=== PATIENT | male | born 1995 | race Caucasian/White ===

== ENCOUNTER 2018-03-28 20:45 | Inpatient (IN) | payer OTHER ==
[~2018-03-28] VITALS: Ht 172.7 cm; Wt 65.8 kg
[~2018-03-28 20:45] MED LIST: ESCI20TA PO; GABA600T2 PO; HYDR-3895 PO; QUET50TA PO
[2018-03-29] MEDS ORDERED: MIRALAX 17 GM POWD.PACK PO PRN (03:00)
[2018-03-29] MEDS ORDERED: ONDANSETRON ODT 4 MG TAB.RAPDIS SL PRN (03:00)
[2018-03-29] MEDS ORDERED: LORAZEPAM 2 MG/1 ML VIAL IM PRN (03:00)
[2018-03-29] MEDS ORDERED: DICYCLOMINE HCL 20 MG TABLET PO PRN (03:00)
[2018-03-29] MEDS ORDERED: METHOCARBAMOL 750 MG TABLET PO PRN (03:00)
[2018-03-29] MEDS ORDERED: IBUPROFEN 400 MG TABLET PO PRN (03:00)
[2018-03-29] MEDS ORDERED: BUPRENORPHINE HCL 2 MG TAB.SUBL SL PRN (03:00)
[2018-03-29] MEDS ORDERED: LORAZEPAM 1 MG TABLET PO PRN ×2 (03:00)
[2018-03-29] MEDS ORDERED: CLONIDINE HCL 0.1 MG TABLET PO PRN (03:00)
[2018-03-29] MEDS ORDERED: ACETAMINOPHEN 325 MG TABLET PO PRN (03:00)
[2018-03-29] MEDS ORDERED: ONDANSETRON 4 MG/2 ML VIAL IM PRN (03:00)
[2018-03-29] MEDS ORDERED: LOPERAMIDE HCL 2 MG CAPSULE PO PRN ×2 (03:00)
[2018-03-29] MEDS ORDERED: HYDROXYZINE PAMOATE 25 MG CAPSULE PO PRN (03:00)
[2018-03-29] MEDS ORDERED: MAG HYDROX/AL HYDROX/SIMETH 30 ML LIQUID UDC PO PRN (03:00)
[2018-03-29] MEDS ORDERED: MAGNESIUM HYDROXIDE 30 ML LIQUID UDC PO PRN (03:00)
--- NOTE | 2018-03-29 03:12 | NUR ---
Pre-assessment Note: Pt seen in intake office. Pt is AOx4 without s/s of acute distress. BP: 119/68, HR: 86, T: 98.0, RR: 16, SpO2: 95%, Pain: 0/10. Pt appears withdrawn and tired. Pt stated he "had a very long flight." Pt reports that he is being admitted for Suboxone and Klonopin dependence. Policies and rules of the unit explained to pt. Pt verbalized understanding. Will continue assessment when pt arrives on floor.
[2018-03-29 03:30] VITALS: BP 119/68
[2018-03-29 03:30] LABS: *AMPHETAMINE, URINE POSITIVE (NEGATIVE); *BARBITURATE, URINE NEGATIVE (NEGATIVE); *CANNABINOID, URINE NEGATIVE (NEGATIVE); *COCCAINE, URINE NEGATIVE (NEGATIVE); *OPIATE, URINE POSITIVE (NEGATIVE); *PHENCYCLIDINE SCREEN,URINE NEGATIVE (NEGATIVE)
--- NOTE | 2018-03-29 03:45 | NUR ---
Admission Note: Pt is 22M, admitted to [facility] at 0312 for Opiate/Benzo withdrawal. Pt is experiencing no withdrawal symptoms at this time. Pt appears slightly intoxicated and withdrawn. Pt reports he had used Heroin IV before travelling to [facility]. Pt is AOx4 and is able to answer assessment questions. Pt states that his withdrawal symptoms include anxiety and chills. Pt reported that he doesn't really experience withdrawal symptoms because he takes his reported substances on a maintenance schedule. Educated pt about signs and symptoms of withdrawal. Pt verbalized understanding. Pt denies hx of withdrawal-induced seizures. Substance use history,: 1. Pt uses 2mg of Klonopin PO daily for the past 8 months. Pt last used Klonopin on 03/28/18. 2. Pt uses 8mg of Suboxone SL daily for the past month. Pt last used Suboxone on 03/27/18. Pt stated he was using 16mg of Suboxone SL for 8 months but has lowered his use in the past month. 3. Pt reported using 0.5g of Heroin IV one time before travelling to [facility]. Pt last used Heroin on 03/28/18. Pt states he is not currently dependent on Heroin. Pt reported that he lives locally but had been in [place] for the past month. Pt just recently arrived to [place] by plane and went straight to [facility]. Pt states that he is in treatment because he "wants to get back on track with his life". Pt reported that he "wants to get his life right". Pt reports that this will be his second time in [facility]. Pt has been previously admitted to [facility] on 09/20/16. Pt also reported going to multiple sober livings within the past year. Pt's main motivation to get clean is for himself. BP: 119/68, HR: 86, T: 98.0, RR: 16, SpO2: 95%, Pain: 0/10. COWS 5. CIWA 5. Respirations even and unlabored. Lung sounds clear bilaterally. Bowel sounds normoactive x4 quadrants. Skin intact. Pt is 145 lbs and is 5'8" tall. Pt follows a regular diet at home. Pt reported NKA. Pt wishes to be full code. Pt's primary physician is Dr. Marcelino (unable to remember name). Pt reports medical hx of anxiety, depression, and hepatitis C+. Pt did not bring any home medications. Pt reports that he is highly dependent on cigarettes and smokes 1 pack a day. Smoking cessation education provided to pt. Pt denies suicidal/homicidal ideation at this time. Bed in lowest position. Side rails up x2. Bed padded for safety. All needs attended and met. Call light functioning and within reach. Will continue to monitor.
--- NOTE | 2018-03-29 04:46 | NUR ---
Pre-assessment Note: Pt seen in intake office. Pt is AOx4 without s/s of acute distress. BP: 119/68, HR: 86, T: 98.0, RR: 16, SpO2: 95%, Pain: 0/10. Pt appears withdrawn and tired. Pt stated he "had a very long flight." Pt reports that he is being admitted for Suboxone and Klonopin dependence. Policies and rules of the unit explained to pt. Pt verbalized understanding. Will continue assessment when pt arrives on floor. Addendum: 03/29/18 at 0447 by LEANNE LAIRD RN ERROR WRONG TIME
--- NOTE | 2018-03-29 07:13 | NUR ---
End of Shift Notes: Pt currently in bed with eyes closed. Pt slept for 3 hours. No PRN medications given during shift. Pt's last COWS was 5 and last CIWA was 5 at 0400. Pt currently on PRN Ativan and PRN Subutex to manage withdrawal symptoms. Fall and Sz precautions observed. Bed in lowest position. Side rails up x2. Call light functioning and within reach. All needs attended and met. Will endorse to day shift nurse.
--- NOTE | 2018-03-29 07:30 | NUR ---
Start of Shift Bindery Machine Setter received report on 22 year old male admitted to [facility] early this morning for medical management of Benzodiazepine and Suboxone withdrawals. Pt endorses NKA, full code and regular diet. Pt reports PMH of Hep C and PPH of anxiety and depression. Pt has not been started on taper yet. Last COWS 5, CIWA 5, per NOC report. No PRN medication administered. Bindery Machine Setter encounters pt in room resting with eyes closed, rise and fall of chest noted with even and unlabored respirations. Bed in low position with wheels locked and side rails up x2. Will continue to monitor, support and encourage according to plan of care.
[2018-03-29 08:30] VITALS: BP 104/50
[2018-03-29] MEDS ORDERED: MULTIVITAMINS,THERAPEUTIC TABLET PO SCH (09:00)
[2018-03-29] MEDS ORDERED: BUPRENORPHINE HCL 2 MG TAB.SUBL SL SCH (10:00)
[2018-03-29 10:01] LABS: BASOPHILS % (AUTO) 0.8 % (0.0-2.0); EOSINOPHILS # (AUTO) 0.1 K/uL (0.0-0.7); EOSINOPHILS % (AUTO) 2.2 % (0.0-7.0); HEMATOCRIT 40.2 % (36.7-47.1); HEMOGLOBIN 14.1 g/dL (12.5-16.3); LYMPHOCYTES # (AUTO) 1.2 K/uL (20.0-40.0); LYMPHOCYTES % (AUTO) 28.5 % (20.5-51.5); MEAN CORPUSCULAR HEMOGLOBIN 30.8 uug (23.8-33.4); MEAN CORPUSCULAR HGB CONC 35 g/dL (32.5-36.3); MEAN CORPUSCULAR VOLUME 87.7 fL (73.0-96.2); MONOCYTES # (AUTO) 0.3 K/uL (2.0-10.0); MONOCYTES % (AUTO) 6.8 % (0.0-11.0); NEUTROPHILS # (AUTO) 2.6 K/uL (1.8-8.9); NEUTROPHILS % (AUTO) 61.7 % (38.5-71.5); RED BLOOD CELL COUNT(AUTO) 4.59 MIL/uL (4.06-5.63)
[2018-03-29 10:03] LABS: PLATELET COUNT (AUTO) 120 K/uL (152-348); WHITE BLOOD COUNT (AUTO) 4.3 K/uL (3.6-10.2)
[2018-03-29 10:05] LABS: ETHANOL < 3 MG/DL (0-0)
[2018-03-29 10:06] LABS: ALANINE AMINOTRANSFERASE 47 U/L (16-63); ALKALINE PHOSPHATASE 71 U/L (50-136); AMYLASE 29 U/L (25-115); ASPARTATE AMINOTRANSFERASE 27 U/L (15-37); BILIRUBIN,TOTAL 1.8 mg/dL (0.2-1.0); CARBON DIOXIDE 27 mmol/L (21-32); CHLORIDE 99 mmol/L (98-107); CREATININE 0.8 mg/dL (0.6-1.3); GLUCOSE 152 mg/dL (74-106); LIPASE 88 U/L (73-393); MAGNESIUM 1.8 mg/dL (1.8-2.4); POTASSIUM 3.4 mmol/L (3.5-5.1); TOTAL PROTEIN, SERUM 7.3 g/dL (6.4-8.2); UREA NITROGEN, BLOOD 8 mg/dL (7-18)
[2018-03-29] MEDS: LORAZEPAM 1 MG TABLET PO SCH ×3 (10:07→20:14)
[2018-03-29 10:34] LABS: THYROID STIMULATING HORMONE 0.794 mIU/mL (0.358-3.740)
[2018-03-29 12:25] VITALS: BP 106/57
[2018-03-29] MEDS: BUPRENORPHINE HCL 2 MG TAB.SUBL SL SCH ×2 (14:17→20:14)
[2018-03-29 16:56] VITALS: BP 112/60
--- NOTE | 2018-03-29 19:40 | NUR ---
Start of Shift Note Received a 22 y/o male px, admitted for medically supervised withdrawal from opiate and benzo. Px is placed on 4 day Subutex and 4 day Ativan taper. Last reported COWS 7 and CIWA 7 by AM shift nurse. During the rounds at 1940, px is awake inside his room. Px appears disheveled and unshaven. Px stated "My anxiety is 4/10." No complaints made. Bed on lowest position, side rails up 2x and call light within reach. We'll continue to monitor.
[2018-03-29 20:00] VITALS: BP 119/65
[2018-03-29] MEDS: GABAPENTIN 300 MG CAPSULE PO SCH (20:14)
[2018-03-30 04:00] VITALS: BP 116/66
[2018-03-30 07:10] LABS: HEPATITIS B SURFACE AG Negative (Negative)
--- NOTE | 2018-03-30 07:15 | NUR ---
End of Shift Note During the shift, px slept most of the time. Px slept for 9 hours. No complaints made. No PRN medications given. Px's oral intake is 1,200 ml, voided 3x, with No BM. At 0630, px is asleep on bed in left side lying position. Bed on lowest position, side rails up 2x and call light within reach. We'll continue to monitor. Px endorsed to AM shift nurse.
--- NOTE | 2018-03-30 08:00 | NUR ---
BEGINNING OF SHIFT Patient endorsement report received from third shift lieutenant nurse, all pertinent information discussed. Patient is a 22 year old male with admitting Dx: Opiate/bzo withdrawal. Patient currently under close observation, continues with ongoing 4 day Subutex And Ativan taper. Patients fall and seizure precautions in place and observed at all times. patient slept for 9 hours. Patient with last Cow score: 7, and last ciwa score f: 7. Patient received in bed with eyes closed respirations even and unlabored, responsive to verbal stimuli. will educated regarding plan of care for the day, and medication regimen. Patient received no PRN during third shift lieutenant. will continue to monitor closely. safety measures in place.
[2018-03-30] MEDS ORDERED: HYDROXYZINE PAMOATE 25 MG CAPSULE PO PRN (09:00)
[2018-03-30] MEDS ORDERED: TUBERCULIN,PURIF.PROT.DERIV. 5 TU/0.1 ML TEST ID ONE (09:00)
[2018-03-30 09:15] VITALS: BP 104/61
[2018-03-30] MEDS: GABAPENTIN 300 MG CAPSULE PO SCH ×2 (09:17→20:39)
[2018-03-30] MEDS: LORAZEPAM 1 MG TABLET PO SCH ×3 (09:18→20:39)
[2018-03-30] MEDS: BUPRENORPHINE HCL 2 MG TAB.SUBL SL SCH ×3 (09:18→20:39)
[2018-03-30 13:22] VITALS: BP 102/62
[2018-03-30 17:28] VITALS: BP 128/75
--- NOTE | 2018-03-30 19:00 | NUR ---
Start of Shift Patient Received. Patient is noted in his room, awake, alert and verbally responsive. Breathing even and non labored. Patient continues on a 4 day Ativan and 4 day Subutex tapers. Per endorsement, patient received PPD to left forearm and to reassessed 04/01/18. No PRN medications. Last noted CIWA 6 and COWS 5. All needs attended to promptly. Will continue plan of care as ordered.
--- NOTE | 2018-03-30 19:05 | NUR ---
END OF SHIFT Patient monitored closely during shift. Patient alert and oriented x4, patient currently with ongoing 4 day Subutex and Ativan taper as ordered and is currently on day 2 of taper. admitting Dx: opiate/bzo withdrawal. Patient Is disheveled, noted with flat affect, has anxious and worried facial expression. During shift Patient presented with: chills, clammy skin, enlarged pupils, nasal congestion, anxiety, tremors, and yawning. Initial cow score of: 7 and ciwa score of: 6, last cow score of: 7 and last ciwa score of: 6. Continues under very close observation. Received no PRN Medications during shift. Received PPD to left F/A, well tolerated. Patient encouraged participation in therapy sessions, patient denies any SI/HI, Patient was encouraged to verbalize feelings, encouraged to develop coping skills and utilization of non pharmacological interventions .Encouraged patient to increase PO fluid intake as tolerated. Patients safety measures are in place. call light kept within reach, will continue to monitor. Endorsed to assembler 1st shift nurse, all pertinent information discussed.
[2018-03-30 20:32] VITALS: BP 120/69
[2018-03-30] MEDS: diphenhydrAMINE 50 MG CAPSULE PO PRN (20:39)
--- NOTE | 2018-03-30 20:41 | NUR ---
PRN Medication Administration Patient is verbalizing inability of falling asleep. PRN Benadryl administered. Will continue to monitor.
--- NOTE | 2018-03-30 21:45 | NUR ---
PRN Medication Reassessment Patient is noted in bed sleeping. Breathing even and non labored. No signs of restlessness or discomfort noted. PRN Benadryl noted to be effective. Will continue to monitor.
[2018-03-31 00:18] VITALS: BP 109/55
--- NOTE | 2018-03-31 04:15 | NUR ---
Vitals Refused Patient is noted in bed sleeping. Breathing even and non labored. No restlessness or facial grimacing noted. Respirations noted to be 16. COWS and CIWA not able to be completed as per ordered. Will continue to monitor. Addendum: 03/31/18 at 0528 by ROBERT ADAMS LVN Amended: Links added.
--- NOTE | 2018-03-31 06:57 | NUR ---
End of Shift Patient is in bed sleeping. Breathing even and non labored. Patient continues on 5 day Subutex taper. Patient received PRN Ativan 2mg for increased anxiety, tremors, increased agitation, and light sensitivity, with medication noted to be effective. Last noted CIWA 7 and COWS 5. Patient noted to sleep a total of 8 hours. All needs attended to promptly. Will endorse to continue plan of care as ordered. Addendum: 03/31/18 at 0702 by ROBERT ADAMS LVN ENTERED IN ERROR
--- NOTE | 2018-03-31 07:01 | NUR ---
End of Shift Patient is noted in bed sleeping. Breathing even and non labored. Patient continues on a 4 day Ativan and 4 day Subutex tapers. Patient received PRN Benadryl for inability of falling asleep with medication noted to be effective. Patient noted to sleep a total of 9 hours. Last noted COWS 5 and CIWA 6. All needs attended to promptly. Will endorse to continue plan of care as ordered. Addendum: 03/31/18 at 0701 by ROBERT ADAMS LVN ENTERED IN ERROR
--- NOTE | 2018-03-31 07:21 | NUR ---
BEGINNING OF SHIFT Patient endorsement report received from taker off drying kiln nurse, all pertinent information discussed. Patient is a 22 year old male with admitting Dx: Opiate/bzo withdrawal. Patient currently under close observation, continues with ongoing 4 day Subutex And Ativan taper, patient scheduled to begin day 3 of taper. Patients fall and seizure precautions in place and observed at all times. patient Patient with last Cow score: 5, and last ciwa score f: 6. Patient received in bed with eyes closed respirations even and unlabored, responsive to verbal stimuli. will educated regarding plan of care for the day, and medication regimen. Patient received PRN: Benadryl, during taker off drying kiln. will continue to monitor closely. safety measures in place.
[2018-03-31 08:34] VITALS: BP 117/67
[2018-03-31] MEDS: GABAPENTIN 300 MG CAPSULE PO SCH ×3 (08:52→20:16)
[2018-03-31] MEDS: LORAZEPAM 1 MG TABLET PO SCH ×2 (08:52→20:15)
[2018-03-31] MEDS: BUPRENORPHINE HCL 2 MG TAB.SUBL SL SCH ×2 (08:53→20:16)
[2018-03-31] MEDS ORDERED: KETOROLAC TROMETHAMINE 30 MG INJ IM PRN (11:30)
[2018-03-31] MEDS ORDERED: IBUPROFEN 600 MG TABLET PO PRN (11:30)
[2018-03-31] MEDS: LIDOCAINE 5% PATCH TD SCH (12:14)
[2018-03-31 12:59] VITALS: BP 133/76
--- NOTE | 2018-03-31 17:07 | NUR ---
Therapist prompted client to attend daily group sessions. Client related that he would attend the next group session.
[2018-03-31 17:43] VITALS: BP 130/82
[2018-03-31] MEDS ORDERED: DIPH50CA37 PO (18:32)
[2018-03-31] MEDS ORDERED: LIDO30AD10 TD (18:32)
[2018-03-31] MEDS ORDERED: DICY20TA28 PO (18:32)
[2018-03-31] MEDS ORDERED: IBUP-1955 PO (18:32)
[2018-03-31] MEDS ORDERED: CLON0.1T14 PO (18:32)
[2018-03-31] MEDS ORDERED: METH-406 PO (18:32)
[2018-03-31] MEDS ORDERED: HYDR-3895 PO (18:32)
[2018-03-31] MEDS ORDERED: GABA-534 PO (18:32)
--- NOTE | 2018-03-31 19:04 | NUR ---
END OF SHIFT Patient monitored closely during shift. Patient alert and oriented x4, patient currently with ongoing 4 day Subutex and Ativan taper as ordered and is currently on day 3 of taper. admitting Dx: opiate/bzo withdrawal. Patient Is disheveled, noted with flat affect, has anxious and worried facial expression. During shift Patient presented with: Chills, enlarged pupils, barely sweating, mild bone and joint aches, nasal congestion, tremors that can be felt but not seen, inial cow score of: 6 and ciwa score of: 6; last cow score of: 6 and last ciwa score of: 6 Continues under very close observation. Received no PRN Medications during shift. Patient encouraged participation in therapy sessions, patient denies any SI/HI, Patient was encouraged to verbalize feelings, encouraged to develop coping skills and utilization of non pharmacological interventions .Encouraged patient to increase PO fluid intake as tolerated. Patients safety measures are in place. call light kept within reach, will continue to monitor. Endorsed to police shift commander nurse, all pertinent information discussed.
--- NOTE | 2018-03-31 19:20 | NUR ---
START OF SHIFT Patient is a 22-year-old male admitted on 03/29/18 for benzodiazepine and opiate withdrawal. Patient is currently on a 4-day Subutex and 4-day Ativan taper, today is day 3, tolerating well. Patient's last COWS was 6, last CIWA 6 per day shift nurse. Patient received no PRN medications per endorsement. Upon assessment, patient appears tired and diaphoretic, bags under his eyes. Patient complains "I just feel really sick" and reports that his legs are "aching." Patient is on fall and seizure precautions, with no history of seizure. Safety measures in place, bed locked in low position, side rails up x2, call light within reach. Will continue to monitor.
[2018-03-31 20:00] VITALS: BP 116/70
[2018-03-31] MEDS: BACLOFEN 10 MG TABLET PO SCH (20:16)
[2018-03-31] MEDS: diphenhydrAMINE 50 MG CAPSULE PO PRN (22:31)
[2018-03-31] MEDS: CLONIDINE HCL 0.1 MG TABLET PO SCH (22:31)
--- NOTE | 2018-03-31 22:31 | NUR ---
PRN BENADRYL & MOTRIN Patient reports difficulty sleeping. Patient reports headache 4/10 on pain scale. PRN Benadryl and PRN Motrin given PO. Patient also states "I change my mind about the clonidine" and decided to take the scheduled clonidine with his PRN medications. Safety measures in place, side rails up x2, bed locked in low position, call light within reach. Will monitor for effectiveness.
--- NOTE | 2018-03-31 23:31 | NUR ---
PRN BENADRYL & MOTRIN REASSESSMENT Patient is observed in bed with eyes closed. Respirations even and unlabored, 16/min. Patient denies headache at this time. Both PRNs noted to be effective. Safety measures in place, side rails up x2, bed locked in low position, call light within reach. Will continue to monitor.
[2018-04-01] VITALS: BP 91/44
--- NOTE | 2018-04-01 | NUR ---
COWS & CIWA DEFERRED COWS and CIWA deferred at this time due to patient sleeping; to be assessed and scored while patient is awake. Respirations even and unlabored, safety measures in place, call light within reach. Will continue to monitor.
[2018-04-01 04:00] VITALS: BP 107/56
--- NOTE | 2018-04-01 04:00 | NUR ---
COWS & CIWA DEFERRED COWS and CIWA deferred at 0400 due to patient sleeping; to be assessed and scored while patient is awake. Respirations even and unlabored, 16/min. Safety measures in place, side rails up x2, bed locked in low position, call light within reach. Will continue to monitor.
--- NOTE | 2018-04-01 07:19 | NUR ---
END OF SHIFT Patient is a 22-year-old male admitted on 03/29/18 for benzodiazepine and opiate withdrawal. Patient is currently on a 4-day Subutex and 4-day Ativan taper, today will be day 4, tolerating well. Patient's last COWS was 7, last CIWA 7. Patient received PRN Benadryl PO and PRN Motrin PO; both noted to be effective. Patient slept for 8 hours, total intake of 1,210mL, void x3, stool x0. Patient is on fall and seizure precautions, with no history of seizure. Safety measures in place, bed locked in low position, side rails up x2, call light within reach. Will endorse to day shift.
--- NOTE | 2018-04-01 07:24 | NUR ---
BEGINNING OF SHIFT Patient endorsement report received from retail shift manager nurse, all pertinent information discussed. Patient is a 22 year old male with admitting Dx: Opiate/bzo withdrawal. Patient currently under close observation, continues with ongoing 4 day Subutex And Ativan taper, patient scheduled to begin day 4 of taper. Patients fall and seizure precautions in place and observed at all times. Patient with last Cow score: 7, and last ciwa score f: 7. Patient received in bed with eyes closed respirations even and unlabored, responsive to verbal stimuli. will educated regarding plan of care for the day, and medication regimen. Patient received PRN: Benadryl, and motrin during retail shift manager. will continue to monitor closely. safety measures in place.
[2018-04-01 08:20] VITALS: BP 111/71
[2018-04-01] MEDS: CLONIDINE HCL 0.1 MG TABLET PO SCH (08:51)
[2018-04-01] MEDS: BACLOFEN 10 MG TABLET PO SCH (08:51)
[2018-04-01] MEDS: GABAPENTIN 300 MG CAPSULE PO SCH (08:51)
[2018-04-01] MEDS: LIDOCAINE 5% PATCH TD SCH (08:53)
[2018-04-01] MEDS ORDERED: LORAZEPAM 1 MG TABLET PO SCH (09:00)
[2018-04-01] MEDS ORDERED: BUPRENORPHINE HCL 2 MG TAB.SUBL SL SCH (09:00)
[2018-04-01 13:21] VITALS: BP 125/86
--- NOTE | 2018-04-01 14:20 | NUR ---
AMA Patient left AMA at 1420 prior to AMA, patient was educated and provided with teaching regarding leaving AMA, with good verbal understanding. Patient refused to comply with treatment, patient adamant about leaving. multiple staff members including doctor, and nurses attempted to reason with patient without any success. VS WNL, skin is intact, patient denied any suicidal or homicidal ideations. patients psychiatrist and MD are aware. Patient was given a list of community resources, AMA forms explained and signed, all belonging were returned to patient. Patient left facility AMA at 1420.
[2018-04-01] MEDS ORDERED: BACLOFEN 10 MG TABLET PO SCH (15:00)
== END 2018-04-01 14:20 | disposition left against medical advice (07) | DRG 770 ==
LOC: SRC 03-29 02:43
PROVIDERS: ADMIT Internal Medicine; ATTEND Internal Medicine
PROC: HZ2ZZZZ Detoxification Services for Substance Abuse Treatment (ICD-10-PCS; principal; 2018-03-29)
PROC: HZ41ZZZ Group Counseling for Substance Abuse Treatment, Behavioral (ICD-10-PCS; 2018-03-30)
DX: F11.23 Opioid dependence with withdrawal (principal); E87.1 Hypo-osmolality and hyponatremia; D69.6 Thrombocytopenia, unspecified; F15.93 Other stimulant use, unspecified with withdrawal; F13.930 Sedative, hypnotic or anxiolytic use, unspecified with withdrawal, uncomplicated; E87.6 Hypokalemia; F41.9 Anxiety disorder, unspecified; F17.210 Nicotine dependence, cigarettes, uncomplicated; Z59.0 Homelessness; F32.9 Major depressive disorder, single episode, unspecified; B19.20 Unspecified viral hepatitis C without hepatic coma; R73.9 Hyperglycemia, unspecified
CPT/HCPCS: 36415; 70030-TC; 80307; 80324; 80361; 83690; 83735; 84443; 85025; 86580; 86592; 86705; 86803; 87340; G0480; Q0163

== ENCOUNTER 2018-05-04 00:13 | Inpatient (IN) | payer OTHER ==
--- NOTE | 2018-05-03 23:20 | NUR ---
PRE-ADMISSION NOTE: Patient assessed in intake office at 2320 on 05/03/2018. Patient is ambulatory with steady gate, stable, AOx4, speech is clear. Patient states that he is "twenty time was for Safety Detox Tx but relapsed again". Patient states that " last used Klonopin 12 mg PO and Suboxone 8 mg PO on 05/02/2018 at AM". Patient is alert and oriented x4. He is intoxicated. The patient reports "I had seizures x2 today at noon. I was alone in my house. I don't remember how long seizures was. I am usually have seizures if not taken Klonopin". Patient denies SI/HI. Breathing is even and unlabored. Patient denies SOB and chest pain. VS: T: 97.9; BP: 106/68; HR: 83; RR: 18; O2 SAT: 98%. Patient denies any pain now: "0/10". Patient reports NKA. Patient instructed on unit protocol of vitals Q4H and COWS/CIWA assessments. Patient verbalized understanding and agreement. Patient also instructed on policy regarding destruction of any controlled substances/prescriptions brought to facility, and handling of all medications. Patient verbalized understanding and agreement. Will complete admission assessment when patient is brought up to unit.
--- NOTE | 2018-05-03 23:27 | NUR ---
ADMISSION NOTE Patient is a 22 year old male admitted to [facility] on 05/03/2018 at 2327 for medically supervised withdrawal from Benzodiazepines (Klonopin), and Opioid (Suboxone). Patient reports NKA. The patient reports Seizures History: "I had seizures x2 today at noon. I was alone in my house. I don't remember how long seizures was. I am usually have seizures if not taken Klonopin". Patient placed on Full Code, Regular Diet, Fall and Seizures Precautions, 1:1 sitter at bedside for safety. Past Medical History: Anxiety, Depression, Seizures History (05/03/2018 at 1200). He denies SI/HI. The patient reports " I have my Primary Care Physician, his name is MD Adamaris". Pre-assessment completed in intake. The patient provided UDS test at this time. Patient is intoxicated, alert and oriented x4, ambulatory with steady gate, speech is soft clear. The patient is cooperative and verbally appropriate. He is poor historian. VS upon admission: T: 97.9; BP: 106/68; HR: 83; RR: 18; O2 SAT: 98%. Patient denies any pain now: "0/10". Ht: 5'8" in; Wt: 130 lb by standing scale. Patient reports the following substances use: 1. Klonopin 12 mg PO every day for four weeks Last dosage - 12 mg on 05/02/2018 at AM". 2. Suboxone 8 mg PO every day for four weeks Last dosage - 8mg on 05/02/2018 at AM". The patient reports "I have been in multiple Tx. The most recent was in [facility] for detox in , but I relapsed immediately because police removed all my prescribed drugs". Patient would like to continue to residential treatment after detox. The patient reports " I have been smoking 1 pack per day during the last 8 years ". Written smoking cessation education provided. Patient verbalized understanding. Patient denies a history of suicidal ideations. Upon initial assessment, patient's Respirations unlabored and even. Patient denies SOB and chest pain. Lungs Sounds are clear bilaterally. Bowel Sounds active in all x4 quadrants. Abdomen is soft and non-tender. PERRLA, brisk capillary refill, cost coordinator equal and strong. Skin is warm and dry to touch: Healed scabs on left inner forearm noted. No open wounds noted. The patient reports, " I just finished my antibiotics: Clindamycin PO, as ordered by my Physician". The patient did not brought Home Medications. The patient oriented to his room, Nurse Call Light, and Serenity Floor. Encourage fluids as tolerated. Encourage to attend activities groups. Patient appears intoxicated. Admission orders noted and cared out. Patient oriented to unit and educated about plan of care including detox such as, group activities therapy, individual therapy, and discharge planning. Encouraged patient to verbalize feelings. All needs met. Safe and calm environment with minimized noises provided. Call light within reach. Bed locked and in lowest position, and padded side rails up x2. Will continue to monitor closely.
[2018-05-04] VITALS: BP 120/53
[~2018-05-04] VITALS: Ht 172.7 cm; Wt 59.0 kg
[~2018-05-04 00:13] MED LIST changes: +CLON0.1T14 PO; +DICY20TA28 PO; +DIPH50CA37 PO; -ESCI20TA PO; +GABA-534 PO; -GABA600T2 PO; +IBUP-1955 PO; +LIDO30AD10 TD; +METH-406 PO; -QUET50TA PO
[2018-05-04] MEDS ORDERED: MAG HYDROX/AL HYDROX/SIMETH 30 ML LIQUID UDC PO PRN (00:30)
[2018-05-04] MEDS ORDERED: LORAZEPAM 2 MG/1 ML VIAL IM PRN (00:30)
[2018-05-04] MEDS ORDERED: ACETAMINOPHEN 325 MG TABLET PO PRN (00:30)
[2018-05-04] MEDS ORDERED: ONDANSETRON ODT 4 MG TAB.RAPDIS SL PRN (00:30)
[2018-05-04] MEDS ORDERED: LOPERAMIDE HCL 2 MG CAPSULE PO PRN ×2 (00:30)
[2018-05-04] MEDS ORDERED: BUPRENORPHINE HCL 2 MG TAB.SUBL SL PRN (00:30)
[2018-05-04] MEDS ORDERED: DIAZEPAM 5 MG TABLET PO PRN (00:30)
[2018-05-04] MEDS ORDERED: IBUPROFEN 600 MG TABLET PO PRN (00:30)
[2018-05-04] MEDS ORDERED: ONDANSETRON 4 MG/2 ML VIAL IM PRN (00:30)
[2018-05-04] MEDS ORDERED: DICYCLOMINE HCL 20 MG TABLET PO PRN (00:30)
[2018-05-04] MEDS ORDERED: MAGNESIUM HYDROXIDE 30 ML LIQUID UDC PO PRN (00:30)
[2018-05-04] MEDS ORDERED: CLONIDINE HCL 0.1 MG TABLET PO PRN (00:30)
[2018-05-04] MEDS ORDERED: DIAZEPAM 10 MG TABLET PO PRN ×2 (00:30)
[2018-05-04] MEDS ORDERED: MIRALAX 17 GM POWD.PACK PO PRN (00:30)
[2018-05-04 01:33] LABS: *AMPHETAMINE, URINE POSITIVE (NEGATIVE); *BARBITURATE, URINE POSITIVE (NEGATIVE); *CANNABINOID, URINE POSITIVE (NEGATIVE); *COCCAINE, URINE NEGATIVE (NEGATIVE); *OPIATE, URINE POSITIVE (NEGATIVE); *PHENCYCLIDINE SCREEN,URINE NEGATIVE (NEGATIVE)
[2018-05-04 04:00] VITALS: BP 107/43
--- NOTE | 2018-05-04 07:26 | NUR ---
END OF SHIFT NOTE: Endorsed patient is a 22 year old male admitted to [facility] on 05/03/2018 at 2327 for medically supervised withdrawal from Benzodiazepines (Klonopin), and Opioid (Suboxone). Patient is intoxicated, alert and oriented x4, ambulatory with steady gate, speech is soft clear. The patient is cooperative and verbally appropriate. Patient reports NKA. The patient reports Seizures History: Last was on 05/03/2018 at 1200. Patient placed on Full Code, Regular Diet, Fall and Seizures Precautions, 1:1 sitter at bedside for safety. Past Medical History: Anxiety, Depression, Seizures History (05/03/2018 at 1200). Patient appears sad, worried with poor eye contact. He is noted with flat affect and depressive mood. He denies SI/HI. Emotional support and reassuring provided. Encouraged to express his feeling. No PRN Medications administrated during day shift. Encouraged to increase oral fluids as tolerated. Encourage to attended groups activities. 1:1 Sitter at bedside for safety. Safe and calm environment with minimized noises was provided. Patient slept 6 hours, intake 200 ml, voided x1. Safety measures: Call light within reach, bed in the lowest position and locked, and padded rails up x2. Patient endorsed to day shift nurse.
[2018-05-04 08:00] VITALS: BP 105/55
[2018-05-04 08:27] LABS: BASOPHILS % (AUTO) 0.5 % (0.0-2.0); EOSINOPHILS # (AUTO) 0.1 K/uL (0.0-0.7); EOSINOPHILS % (AUTO) 2.4 % (0.0-7.0); HEMATOCRIT 45.1 % (36.7-47.1); HEMOGLOBIN 15.5 g/dL (12.5-16.3); LYMPHOCYTES # (AUTO) 1.5 K/uL (20.0-40.0); LYMPHOCYTES % (AUTO) 44.1 % (20.5-51.5); MEAN CORPUSCULAR HGB CONC 35 g/dL (32.5-36.3); MEAN CORPUSCULAR VOLUME 87.1 fL (73.0-96.2); MONOCYTES # (AUTO) 0.1 K/uL (2.0-10.0); MONOCYTES % (AUTO) 4.2 % (0.0-11.0); NEUTROPHILS # (AUTO) 1.7 K/uL (1.8-8.9); NEUTROPHILS % (AUTO) 48.8 % (38.5-71.5); PLATELET COUNT (AUTO) 83 K/uL (152-348); RED BLOOD CELL COUNT(AUTO) 5.17 MIL/uL (4.06-5.63); WHITE BLOOD COUNT (AUTO) 3.4 K/uL (3.6-10.2)
[2018-05-04 08:41] LABS: ETHANOL < 3 MG/DL (0-0)
[2018-05-04 08:48] LABS: ALANINE AMINOTRANSFERASE 46 U/L (16-63); ALKALINE PHOSPHATASE 79 U/L (50-136); AMYLASE 32 U/L (25-115); ASPARTATE AMINOTRANSFERASE 27 U/L (15-37); BILIRUBIN,TOTAL 1.5 mg/dL (0.2-1.0); CARBON DIOXIDE 31 mmol/L (21-32); CHLORIDE 103 mmol/L (98-107); CREATININE 0.9 mg/dL (0.6-1.3); GLUCOSE 111 mg/dL (74-106); LIPASE 79 U/L (73-393); MAGNESIUM 1.9 mg/dL (1.8-2.4); POTASSIUM 3.5 mmol/L (3.5-5.1); TOTAL PROTEIN, SERUM 8.8 g/dL (6.4-8.2); UREA NITROGEN, BLOOD 10 mg/dL (7-18)
[2018-05-04 09:00] LABS: THYROID STIMULATING HORMONE 0.563 mIU/mL (0.358-3.740)
--- NOTE | 2018-05-04 09:15 | NUR ---
START OF SHIFT: Received report from shift engineer nurse. Patient is 22 year old male admitted for medically supervised withdrawal from klonopin and suboxone. Patient is full code with NKA. Reports from shift engineer RN, slept 6 hours, no prn given, currently on health and safety trainer for safety due to recent history of seizure prior to admission. Patient was noted sleeping with no respiratoy distress noted at beginning of this shift, health and safety trainer at bedside. Patient more awake at 0900, able to respond to questions. Patient is alert and oriented X4, denies SOB, chest pain. Patients CIWA is 7 and COWS is 7. Patient reports anxiety, sweating, tremors, dilated pupil noted, and backache 5/10. No scheduled meds given at this time. Encouraged to attend group activities today. Remains on health and safety trainer for safety, on seizure precaution, bed with padded rails, bed at lowest setting. Call light within reach. Will continue to monitor patient.
[2018-05-04] MEDS: METHOCARBAMOL 750 MG TABLET PO PRN (11:06)
--- NOTE | 2018-05-04 11:06 | NUR ---
PRN TYLENOL AND ROXABIN Patient complains of back pain, 5/10. PRN tylenol and robaxin were given. Will continue to monitor patient.
[2018-05-04 12:00] VITALS: BP 111/59
--- NOTE | 2018-05-04 12:06 | NUR ---
PRN REASSESSMENT TYLENOL AND ROBAXIN Patient reports pain 0/10. Prn tylenol and robaxin effective
[2018-05-04] MEDS ORDERED: BUPRENORPHINE HCL 2 MG TAB.SUBL SL SCH (13:00)
[2018-05-04] MEDS: IBUPROFEN 600 MG TABLET PO PRN (13:14)
--- NOTE | 2018-05-04 13:14 | NUR ---
PRN MOTRIN Patient complains of generalized body pain 7/10, prn motrin given. Will continue to monitor patient.
[2018-05-04] MEDS: PHENOBARBITAL 60 MG TABLET PO SCH ×2 (13:25→16:48)
--- NOTE | 2018-05-04 14:14 | NUR ---
PRN REASSESSMENT RAVINDRA Patient reports pain decreased to 4/10, med effective
[2018-05-04] MEDS ORDERED: GABAPENTIN 300 MG CAPSULE PO SCH (15:00)
[2018-05-04 16:00] VITALS: BP 106/57
[2018-05-04] MEDS: BUPRENORPHINE HCL 2 MG TAB.SUBL SL SCH ×2 (16:48→20:17)
--- NOTE | 2018-05-04 18:50 | NUR ---
START OF SHIFT NOTE: The patient is a 22 year old male alert and oriented x4,ambulatory with stable gait. The patient is cooperative, has soft and clear speech. He appears worried with flat affect and anxious mood. Emotional support and reassuring provided. The patient encouraged to express his feelings. The patient continues ordered 5 day Phenobarbital and 5 day Subutex Taper for Benzodiazepines (Klonopine), Opioid (Suboxon), and Methamphetamine withdrawal. He is tolerated well. The most recent COWS=9, CIWA=9 at 1600: During day shift patient c/o anxiety, agitation, irritability, restlessness, fatigue, nervousness, tremors, generalized body aches, sweating, nasal congestion, and abdominal cramps. PRN Robaxin 750 mg PO administrated for myalgia at 1106, PRN Tylenol 650 mg PO administrated for generalized body aches at 1106, and PRN Motrin 600 mg PO administrated for general body aches at 1314, as ordered, and were effective. The patient remains compliant with treatment, medications, and diet regime. Encouraged to fluids intake as tolerated. Encouraged to attend group activities. 1:1 sitter at bedside for safety. Safe and calm environment with minimized noises was provided. All needs met. Safety measures: Call light within reach, bed is locked in lowest position, and padded bed rails up bilaterally. The patient endorsed by outgoing day shift nurse. Will continue to monitor closely.
--- NOTE | 2018-05-04 19:00 | NUR ---
END OF SHIFT Patient is 22 year old male admitted for medically supervised withdrawal from clonazepam and buprenorphine. Most recent CIWA: 9 AND COWS: 9. Patient reports anxiety, nausea, sweating, body aches and tremors noted. PRN tylenol X1, robaxin X1, motrin X1. Compliant with routine meds during this shift. Started Valium and Subutex taper today. Ambulating with steady gait, no falls noted. No seizure activity noted. 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 scroll assemblerdomain architect will continue to monitor patient. Endorsed to oncoming RN
[2018-05-04 20:00] VITALS: BP 114/68
[2018-05-04] MEDS: diphenhydrAMINE 50 MG CAPSULE PO PRN (20:17)
[2018-05-04] MEDS: GABAPENTIN 300 MG CAPSULE PO SCH (20:17)
--- NOTE | 2018-05-04 20:17 | NUR ---
PRN BENADRYL 50 MG 1 CAPSULE PO ADMINISTRATION. Patient c/o insomnia. PRN Benadryl 50 mg PO administrated for insomnia as ordered. Patient tolerated well. Safe and calm environment provided. 1:1 sitter at bedside for safety. All needs met. Safety measures in place: Call light within reach, bed locked in lowest position, and padded bed rails up bilaterally. Will continue to monitor closely.
[2018-05-04] MEDS ORDERED: PHENOBARBITAL 60 MG TABLET PO SCH (21:00)
--- NOTE | 2018-05-04 21:17 | NUR ---
PRN BENADRYL PO RE-ASSESSMENT Patient is sleeping. RR 16. Respirations even and unlabored. PRN Benadryl 50 mg 1 tab. PO administrated at 2017 as ordered was effective. 1:1 sitter at bedside for safety. Safe and calm environment provided. All needs met. Safety measures in place: Call light within reach, bed locked in lowest position, and padded bed rails up bilaterally. Will continue to monitor closely.
--- NOTE | 2018-05-04 22:41 | NUR ---
PRN VALIUM 20 MG PO ADMINISTRATION PRN Valium 20 mg PO administrated for CIWA=17 as ordered. Patient tolerated well. 1:1 sitter at bedside for safety. Safe and calm environment with minimized noises was provided. All needs met. Safety measures in place: Call light within reach, bed locked in lowest position, and padded bed rails up bilaterally. Will continue to monitor closely.
--- NOTE | 2018-05-04 23:41 | NUR ---
PRN VALIUM PO RE-ASSESSMENT CIWA=12. Valium 20 mg PO administrated for CIWA=17 as ordered was effective. 1:1 sitter at bedside for safety. Safe and calm environment with minimized noises was provided. All needs met. Safety measures in place: Call light within reach, bed locked in lowest position, and padded bed rails up bilaterally. Will continue to monitor closely.
[2018-05-05] VITALS: BP 113/76
--- NOTE | 2018-05-05 04:00 | NUR ---
VS REFUSED, CIWA /COWS DEFERRED VS refused, CIWA/COWS deferred at 0400 due to patient sleeping; to be assessed and scored while patient is awake. Respirations are even and unlabored. RR:15. 1:1 sitter at bedside for safety. Safe and calm environment with minimized noises was provided. All needs met. Safety measures: Call light within reach bed is locked in lowest position, and padded bed rails up bilaterally.
--- NOTE | 2018-05-05 07:07 | NUR ---
END OF SHIFT Presented 22 year old male tolerated well with ordered 5 Day Phenobarbital and 5 Day Subutex Taper ordered for Klonopin, Suboxone, and Methamphetamine withdrawal. Patient is alert and oriented x4. Patient appears sad, worried with flat affect and anxious mood. Emotional support provided. Encouraged to expresses her feelings. The patient noted unshaven, disheveled, and unkempt with uncombed hair. Education in safety and hygiene care provided to patient. Encouraged to independently perform hygiene care. Initial COWS=14, CIWA=14 at 2000. The most recent COWS=11, CIWA=11 at 0000. The patient presented with moderate withdrawal symptoms of anxiety, agitation, nervousness, nasal congestion, stomach cramps, sweating, restlessness, tremors, and fatigue. PRN Benadryl 50 mg PO administrated for insomnia at 2017, PRN Valium 20 mg PO administrated for CIWA=17 as ordered at 2241, and were effective. Patient slept for 10 hours, intake 895 ml, voided x1. Calm and safety environment with minimized noises was provided. 1:1 sitter at bedside for safety. Encouraged to increase oral fluids intake as tolerated. Encouraged to attend groups activities. All needs met. Safety measures in the place: Call light within reach, bed locked in the lowest position, and padded rails up x2. Patient endorsed to day shift nurse.
--- NOTE | 2018-05-05 07:30 | NUR ---
START OF SHIFT Pt is a 22 yr old male, AA&Ox4. pt was admitted on 05/04/18 for Benzo/Opiate withdrawal and is on 5 day Subutex and 5 day Phenobarbital taper as ordered. Medication beau well. Received report from night time babysitter nurse. Pt received Valium 20mg PO PRN for CIWA of 17, medication was effective. Pt slept for 10 hrs. Pt is on 1:1 for safety. Pt is currently c/o anxiety. Facial flush and fine tremors are noted. Skin is intact, warm and moist to touch. Safety precautions observed. Encouraged increase fluid intake. Will continue to monitor.
[2018-05-05 08:00] VITALS: BP 97/50
[2018-05-05] MEDS ORDERED: TUBERCULIN,PURIF.PROT.DERIV. 5 TU/0.1 ML TEST ID ONE (09:00)
[2018-05-05] MEDS: GABAPENTIN 300 MG CAPSULE PO SCH ×2 (09:08→20:21)
[2018-05-05] MEDS: PHENOBARBITAL 60 MG TABLET PO SCH ×3 (09:09→20:20)
[2018-05-05] MEDS: BUPRENORPHINE HCL 2 MG TAB.SUBL SL SCH ×4 (09:09→20:21)
--- NOTE | 2018-05-05 10:26 | NUR ---
COMMUNICATION Per Dr. So, 1:1 sitter is discontinued. Pt is noted with steady gait. safety precautions observed. Will continue to monitor.
[2018-05-05 12:00] VITALS: BP 111/60
[2018-05-05 13:10] LABS: HEPATITIS B SURFACE AG Negative (Negative)
[2018-05-05] MEDS: IBUPROFEN 600 MG TABLET PO PRN (13:25)
--- NOTE | 2018-05-05 13:27 | NUR ---
PRN GIVEN Pt is c/o increase anxiety, headache and Visual sensitivity to light. Pt is noted with fine tremors. CIWA score was 14. Valium 10mg PO PRN and Motrin 600mg PO PRN was given as ordered. Encouraged increase fluid intake. Will continue to monitor.
--- NOTE | 2018-05-05 14:26 | NUR ---
PRN RE-ASSESSMENT Valium 10mg PO PRN and Motrin 600mg PO PRN was effective. Pt continues to c/o mild headache and sensitivity to light. Safety precautions observed. Encouraged increase fluid intake. Will continue to monitor.
[2018-05-05 16:00] VITALS: BP 106/52
--- NOTE | 2018-05-05 19:00 | NUR ---
START OF SHIFT NOTE: Endorsed 22 year old male tolerated well with ordered 5 day Phenobarbital and 5 day Subutex Taper for Benzodiazepines (Klonopine), Opioid (Suboxone), and Methamphetamine withdrawal. Withdrawal symptoms will be closely monitored. The patient alert and oriented x4, cooperative, with soft and clear speech. He is ambulatory with stable gait. The patient appears with anxious affect and irritable mood. Emotional support and reassuring provided. The patient encouraged to express his feelings. The most recent COWS=6, CIWA=10 at 1600: During day shift patient c/o anxiety, agitation, irritability, restlessness, fatigue, nervousness, tremors, generalized body aches, sweating, nasal congestion, and abdominal cramps. PRN Valium 10 mg PO for CIWA=14 administrated at 1327, PRN Motrin 600 mg PO for headache administrated at 1327, and were effective. The patient remains compliant with treatment, medications, and diet regime. Encouraged to fluids intake as tolerated. Encouraged to attend group activities. Safe and calm environment with minimized noises was provided. All needs met. Safety measures: Call light within reach, bed is locked in lowest position, and padded bed rails up bilaterally. The patient endorsed by outgoing day shift nurse. Will continue to monitor closely.
--- NOTE | 2018-05-05 19:00 | NUR ---
END OF SHIFT Pt is a 22 yr old male, AA&Ox4. Pt was admitted on 05/04/18 for Benzo/Opiate withdrawal and is on 5 day Phenobarbital and 5 day Subutex taper as ordered. Medication beau well. Pt has been cooperative with medication regimen. Pt refused to attend group therapy and remained in his room throughout the day. Pt was c/o increase anxiety, agitation, sweats, headache, and sensitivity to light. Pt was noted with flat affect. Fine tremors are seen on BUE. Pt received Valium 10mg PO PRN for CIWA of 14 at Motrin 600mg PO PRN for headache. Medication was effective. Last COWS score was 6 and CIWA score was 10 at 1600. Pt was encouraged increase fluids for hydration. Safety precautions observed. Call light is within reach. Endorsed to shift leader nurse to continue with care.
[2018-05-05 20:00] VITALS: BP 122/72
[2018-05-05] MEDS: diphenhydrAMINE 50 MG CAPSULE PO PRN (20:21)
--- NOTE | 2018-05-05 20:21 | NUR ---
PRN BENADRYL 50 MG 1 CAPSULE PO ADMINISTRATION PRN Benadryl 50 mg PO administrated as ordered for insomnia with full glass of water. Patient tolerated well. Safe and calm environment with minimized noises was provided. All needs met. Safety measures in the place: Call light within reach, bed locked in the lowest position, padded rails up x2. Will continue to monitor closely.
--- NOTE | 2018-05-05 21:21 | NUR ---
PRN BENADRYL PO RE-ASSESSMENT PRN Benadryl 50 mg PO administrated at 2020 as ordered was effective. The patient is sleeping. RR: 16. Respirations are even and unlabored. Safe and calm environment with minimized noises was provided. All needs met. Safety measures in the place: Call light within reach, bed locked in the lowest position, and padded rails up x2. Will continue to monitor closely.
--- NOTE | 2018-05-06 | NUR ---
VS REFUSED, CIWA /COWS DEFERRED VS refused, CIWA/COWS deferred at 0000 due to patient sleeping; to be assessed and scored while patient is awake. Respirations are even and unlabored. RR:16. Safe and calm environment with minimized noises was provided. All needs met. Safety measures: Call light within reach bed is locked in lowest position, and padded bed rails up bilaterally.
--- NOTE | 2018-05-06 04:00 | NUR ---
VS REFUSED, CIWA /COWS DEFERRED VS refused, CIWA/COWS deferred at 0400 due to patient sleeping; to be assessed and scored while patient is awake. Respirations are even and unlabored. RR:16. Safe and calm environment with minimized noises was provided. All needs met. Safety measures: Call light within reach bed is locked in lowest position, and padded bed rails up x2.
--- NOTE | 2018-05-06 07:30 | NUR ---
END OF SHIFT The patient is a 22 year old male admitted for Klonopin, Suboxone, and Methamphetamine withdrawal, continues ordered 5 Day Phenobarbital and 5 Day Subutex, which tolerated well. The patient is alert and oriented x4, ambulatory with stable gate. The patient is cooperative, with soft, and clear speech. The patient noted with flat affect and liable mood Educated to use of Relaxation Techniques: deep breathing exercises, guided imagery, and visualization. Encouraged verbalization of feelings, fears, and anxiety. Emotional support and reassurance provided to patient. The patient noted disheveled, unshaven, unkempt with uncombed hair. Encouraged to independently perform hygiene care. 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 COWS=14, CIWA=15 at 2000. VS refused, COWS/CIWA deferred at 0000 and 0400 due to patient sleeping; to be assessed and scored while patient is awake. No S/S of distress noted during my shift. VSWNL. Respirations are unlabored and even. Skin is intact, warm and dry to touch. PRN Benadryl 50 mg PO administrated for insomnia at 2020, and was effective. Safe and calm environment with minimized noises was provided. Skin remains intact, warm and dry to touch. Encouraged to increase oral fluid intake as tolerated. Patient slept for 8 hours, intake 355 ml, voided x2. All needs met. Safety measures: Call light within reach, bed in the lowest position and locked, and padded bed rails up x2. Patient endorsed to day shift nurse.
--- NOTE | 2018-05-06 07:30 | NUR ---
Start of Shift Supply Specialist received report on 22 year old male admitted to [facility] on 05/04/18 for medical management of Benzodiazepine, Suboxone and Methamphetamine withdrawals. Pt endorses NKA, full code and regular diet. PMH of Hepatitis C and a history of withdrawal related seizures. PPH of anxiety and depression. Pt currently on a Phenobarbital and Subutex taper, tolerating well with last COWS 14 and CIWA 15, per NOC report. Pt administered Benadryl(insomnia) on NOC, per report. Supply Specialist encounters pt in pts room, resting with eyes closed and even and unlabored respirations at 14. Bed in low position with wheels locked and side rails up x2. Will continue to monitor, support and encourage according to plan of care.
[2018-05-06 08:15] VITALS: BP 109/57
[2018-05-06] MEDS: PHENOBARBITAL 60 MG TABLET PO SCH ×3 (09:31→16:54)
[2018-05-06] MEDS: GABAPENTIN 300 MG CAPSULE PO SCH ×3 (09:31→20:09)
[2018-05-06] MEDS: BUPRENORPHINE HCL 2 MG TAB.SUBL SL SCH ×3 (09:31→20:09)
[2018-05-06 12:30] VITALS: BP 116/53
[2018-05-06 16:40] VITALS: BP 109/50
[2018-05-06] MEDS ORDERED: DIAZEPAM 5 MG TABLET PO PRN (18:30)
[2018-05-06] MEDS ORDERED: DIAZEPAM 10 MG TABLET PO PRN ×2 (18:30)
--- NOTE | 2018-05-06 19:00 | NUR ---
[address] End of Shift Communications Marketing Intern provided report on 22 year old male admitted to [facility] on 05/04/18 for medical management of Benzodiazepine, Suboxone and Methamphetamine withdrawals. Pt endorses NKA, full code and regular diet. PMH of Hepatitis C and a history of withdrawal related seizures. PPH of anxiety and depression. Pt currently on a Phenobarbital and Subutex taper, tolerating well with last COWS 18 and CIWA 14, recorded at 1630. Pt not administered any PRN this shift. Pt has been isolative to room, resting. A/O x4 and makes his needs known. Linear thought process with clear speech. Cooperative and polite. Blunted affect with depressed mood. Pt with complaints of severe body aches, diaphoresis, anxiety and nausea. Bed in low position with wheels locked and side rails up x2.
--- NOTE | 2018-05-06 19:30 | NUR ---
Start of Shift Pt admitted 05/04/18 for medically managed withdrawal/detox from Klonopin, Suboxon and Methamphetamine salts. Pt presents with PMH of Anxiety, depression and Hepitis C, NKA, full code, on regular diet, safety precautions (fall/seizure) with 2 seizures occurring on day of admission. Pt on 5 day Phenobarbitol and 5 day Subutex tapers. Pt assessed in room where he appears anxious/agitated, tremulous, sweats with reported alternating chills. Mild A/H's with photoseneitivity. Pt denies HI/SI. Pt able to tell how Police apprehended him jaywalking, and finding his Klonopin and Suboxone, confiscated it, sending pt into withdrawal, with a seizure in [place], taking a bus to [facility] to a sober living, who referred pt to [facility]. Last reported COWS/CIWA . Will administer evening meds at 2000 to pt to minimize risk of seizure and monitor closely for duration of shift.
[2018-05-06 20:00] VITALS: BP 124/72
[2018-05-06] MEDS ORDERED: PHENOBARBITAL 60 MG TABLET PO SCH (21:00)
[2018-05-06] MEDS: diphenhydrAMINE 50 MG CAPSULE PO PRN (22:20)
--- NOTE | 2018-05-06 22:20 | NUR ---
PRN Meds Benedryl 50mg PO for insomnia and Valium 20mg PO for CIWA 17 given. Pt appears with sweats, tremulous, anxiety, restlessness. Will continue to monitor pt, reassessing in 1 hour
--- NOTE | 2018-05-06 23:20 | NUR ---
PRN Reassessment Benedryl 50mg PO for insomnia and Valium 20mg PO for CIWA 17 given 1 hour prior. At present pt is sleeping, RR 14, even and nonlabored. Meds effective. Will continue to monitor for any s/s's pain or w/d
[2018-05-07] VITALS: BP 109/64
--- NOTE | 2018-05-07 | NUR ---
Midnight COWS/CIWA Deferred 0000 VS's obtained and stable. COWS and CIWA deferred r/t pt sleeping/refused. Will continue to monitor for any s/s's pain or w/d
[2018-05-07 04:00] VITALS: BP 112/52
--- NOTE | 2018-05-07 04:00 | NUR ---
COWS/CIWA Deferred VS's obtained, stable with bradycardia, COWS and CIWA deferred r/t pt sleeping/refused. Will continue to monitor until morning endorsement for any s/s's pain or w/d.
--- NOTE | 2018-05-07 07:05 | NUR ---
End of Shift Endorsement given to day nurse. Pt admitted 05/04/18 for medically managed withdrawal/detox from Klonopin, Suboxone and Methamphetamine salts. Pt presents with PPH of Anxiety, depression and PMH ofHepitis C. DAVIDA, full code, on regular diet. Pt continues to tolerate the 5 day Phenobarbitol and Subutex taper well, Valium PO PRN available to supplement. Pt did receive Valium 20mg for a CIWA of 17and Benedryl 50mg PO for insomnia. Pt continues to exhibits anxiety, agitation, sweats/chills, photosensitivity. Affect remains flat and blunted, thought processes linear. Pt activity level hypoactive and fidgety.Pt was able to sleep for over 7 hours, with 1300mls intake and 1 void during the shift. Safety precautions, fall and seizure, remain in effect. Call light within reach, bed in lowest position, both side rails raised, no s/s's of distress noted and needs attended to.
[2018-05-07 08:00] VITALS: BP 116/60
--- NOTE | 2018-05-07 08:05 | NUR ---
START OF SHIFT NOTE Received report from night nurse, patient admitted for opioid, Benzo withdrawal, and continues with Phenobarbital and Subutex taper tolerating well. Per endorsement patient received PRN Valium, Benadryl effective per night nurse. Last CIWA -,COWS-15, slept for 7 hours. Received patient anxious, agitated, restless, flushed face, runny nose, bilateral hand tremors, body aches, skin intact warm and dry to touch. Patient due for schedule medications. Educated patient regarding importance of attending group activities, patient verbalized understanding. All safety measures in place. Will cont to monitor.
[2018-05-07] MEDS ORDERED: BUPRENORPHINE HCL 2 MG TAB.SUBL SL SCH (09:00)
[2018-05-07] MEDS: GABAPENTIN 300 MG CAPSULE PO SCH ×3 (09:20→20:51)
[2018-05-07] MEDS: PHENOBARBITAL 60 MG TABLET PO SCH ×3 (09:21→20:52)
[2018-05-07 12:00] VITALS: BP 110/62
[2018-05-07 16:00] VITALS: BP 118/63
[2018-05-07] MEDS: BUPRENORPHINE HCL 2 MG TAB.SUBL SL SCH ×2 (17:13→20:52)
--- NOTE | 2018-05-07 19:12 | NUR ---
END OF SHIFT NOTE Gave report to night nurse, 22 year old male patient started on a 5 day Phenobarbital and Subutex taper and is tolerating well. Pt remains A/O x4. No acute distress noted throughout shift. Patient remains safe throughout shift. No PRN medications needed. Encourage patient to attend group activities and patient seen socializing with peers. Most recent CIWA is 12 and COWS 12@ 1600. All needs are attended. Pt endorsed to night nurse in stable condition. Pt is stable at this time, night nurse will continue to monitor.
--- NOTE | 2018-05-07 19:30 | NUR ---
Start of Shift Endorsement received from day nurse. Pt admitted 05/04/18 for medically managed withdrawal/detox from Klonopin, Suboxone, and Methamphetamine salts. Pt presents with PMH Hepititis C, PPH of anxiety and depression. Pt is on a full code status, with NKS's, and on a regular diet. Pt's last COWS and CIWA reported 1600 of 12 and 12, Pt assessment reveals odorous room, with clothes on floor, Pt appears disheveled, with dirty fingernails, unshaven diaphoretic, clothing unchanged from previous night. Expression presents with poor eye contact, worried/sad/preoccupied, anxious. Affect flat and depressed. Pt fidgety, lethargic with c/o extreme fatique for day. Pupils dilated to 4-5mm, no c/o A/V halluciantions. BM reported for day shift, no c/o N/V/D, pain or discomfort. Requests sleep aids for 2200 if still awake, c/o insomnia with night terrors. Will continue to monitor for any s/s's pain or w/d. Safety measure in place: bed locked and in lowest position with siderails x 2 up.
[2018-05-07 20:00] VITALS: BP 120/65
[2018-05-08] VITALS: BP 103/50
--- NOTE | 2018-05-08 | NUR ---
CIWA Deferred VS's obtained/stable: BP 103/50, HR 63, RR 16 and 97% SaO2. CIWA deferred r/t pt sleeping/refused. Will continue to monitor for any s/s's pain or w/d or distress.
[2018-05-08 04:00] VITALS: BP 103/48
--- NOTE | 2018-05-08 04:00 | NUR ---
COWS/CIWA Deferred VS's obtained/stable. BP 103/48, HR 52, RR 12, SaO2 99%. COWS and CIWA deferred r/t pt sleeping/refused. Will continue to monitor, assessing for s/s's pain or w/d.
--- NOTE | 2018-05-08 07:18 | NUR ---
End of Shift Morning endorsement given to day nurse. Pt admitted 05/04/18 for medically managed withdrawal from Klonopin, Suboxone, and Methamphetamine salts continues to tolerate 5 day Subutex and Phenobarbitol tapers well, with VS's remaining stable, COWS 13 and CIWA 14 at 2000 hours, deferred after for pt sleeping/refused. Pt presents still with flushing and diaphoresis, increased anxiety. Room is disheveled and odorous, pt disheveled with unchanged clothes. Pt encouraged to perform basic ADL's and tidy room. There were no PRN's for this shift. Pt slept for 9 hours with 1210 mls intake and 3 voids. Pt remains a full code with NKA's, and on a regular diet. Safety precautions remain in place, fall and seizure, with bed in lowest position and locked, side rails up x 2, all needs attended and in no distress.
--- NOTE | 2018-05-08 07:30 | NUR ---
START OF SHIFT NOTE Received report from night nurse, patient admitted for opioid, Benzo withdrawal, and continues with Phenobarbital and Subutex taper tolerating well. Per endorsement patient did not receive any PRN, Last CIWA -14,COWS-13, slept for 9 hours. Received patient anxious, agitated, restless, sad facial expression, runny nose, bilateral hand tremors, body aches, Patient due for schedule medications. Educated patient regarding importance of attending group activities, patient verbalized understanding. All safety measures in place. Will cont to monitor.
[2018-05-08 08:00] VITALS: BP 115/68
[2018-05-08] MEDS: BUPRENORPHINE HCL 2 MG TAB.SUBL SL SCH ×2 (08:37→20:38)
[2018-05-08] MEDS: PHENOBARBITAL 60 MG TABLET PO SCH ×2 (08:37→20:38)
[2018-05-08] MEDS: GABAPENTIN 300 MG CAPSULE PO SCH ×3 (08:37→20:37)
[2018-05-08] MEDS ORDERED: BUPRENORPHINE HCL 2 MG TAB.SUBL SL SCH (09:00)
[2018-05-08 12:00] VITALS: BP 122/62
[2018-05-08 16:00] VITALS: BP 110/66
--- NOTE | 2018-05-08 19:10 | NUR ---
END OF SHIFT NOTE Gave report to night nurse, 22 year old male patient continues on a 5 day Phenobarbital and Subutex taper and is tolerating well. Pt remains A/O x4. No acute distress noted throughout shift. Patient remains safe throughout shift. No PRN medications needed. Encourage patient to attend group activities. Most recent CIWA is 10 and COWS 10@ 1600. All needs are attended. Pt endorsed to night nurse in stable condition. Pt is stable at this time, night nurse will continue to monitor.
[2018-05-08 20:00] VITALS: BP 132/71
--- NOTE | 2018-05-08 20:00 | NUR ---
START OF SHIFT NOTE RECEIVED REPORT FROM DAY SHIFT NURSE. PATIENT IS A 22 YEAR OLD MALE ADMITTED FOR BENZO/OPIOID WITHDRAWAL . PATIENT IS ON 5 DAY PHENOBARBITAL AND SUBUTEX TAPER. PATIENT DID NOT REQUIRE PRN MEDICATION. LAST COWS 10 AND CIWA 10. RECEIVED PATIENT ALERT AND ORIENTED X 4. RESPIRATION EVEN AND UNLABORED. PATIENT WITH FLAT AFFECT, ANXIOUS, SWEATING, C/O OF MYALGIA "I FEEL LIKE IM BRUISED,I'M ACHING EVERYWHERE", ABDOMINAL CRAMPING, RESTLESS LEGS AND STUFFY NOSE. PATIENT DID NOT ATTEND GROUPS TODAY, ENCOURAGE TO ATTEND AND PARTICIPATE.SAFETY MEASURES IN PLACE.CALL LIGHT IN REACH. WILL CONTINUE TO MONITOR
[2018-05-08] MEDS: METHOCARBAMOL 750 MG TABLET PO PRN (20:37)
[2018-05-08] MEDS: diphenhydrAMINE 50 MG CAPSULE PO PRN (20:38)
--- NOTE | 2018-05-08 20:38 | NUR ---
PRN BENADRYL AND ROBAXIN ADMINISTRATION PATIENT C/O GENERALIZED BODY ACHES AND REQUESTS FOR SLEEP AID. WILL MONITOR FOR EFFECTIVENESS
--- NOTE | 2018-05-08 21:38 | NUR ---
PRN ROBAXIN RE-ASSESSMENT PATIENT STATES ROBAXIN HELPFUL AND EFFECTIVE.
--- NOTE | 2018-05-08 23:00 | NUR ---
PRN CANDYADRYL RE-ASSESSMENT PATIENT IN BED, SLEEPING. RESPIRATION EVEN AND UNLABORED. SAFETY MEASURES IN PLACE. CALL LIGHT IN REACH. WILL CONTINUE TO MONITOR
--- NOTE | 2018-05-09 | NUR ---
COWS AND CIWA DEFERRED PATIENT SLEEPING. RESPIRATION EVEN AND UNLABORED. SAFETY MEASURES IN PLACE. CALL LIGHT IN REACH. WILL CONTINUE TO MONITOR VS REFUSED. Addendum: 05/09/18 at 0722 by JACKY CAT LVN VS REFUSED
--- NOTE | 2018-05-09 07:19 | NUR ---
END OF SHIFT NOTE PATIENT SLEPT 7 HOURS. FLUID INTAKE 1,000 ML. VOIDED X 2. NO BM. MONITORED PATIENT THROUGHOUT SHIFT. PATIENT WITH FLAT AFFECT, ANXIOUS, SWEATING, C/O OF MYALGIA "I FEEL LIKE IM BRUISED,I'M ACHING EVERYWHERE", ABDOMINAL CRAMPING, RESTLESS LEGS AND STUFFY NOSE. PATIENT DID NOT ATTEND GROUPS , ENCOURAGED TO ATTEND AND PARTICIPATE. PATIENT WAS GIVEN PRN ROBAXIN AND BENADRYL FOR SLEEP AID. PATIENT SAFETY MEASURES IN PLACE.CALL LIGHT IN REACH. WILL CONTINUE TO MONITOR. LAST COWS 11 AND CIWA 10.
[2018-05-09 08:00] VITALS: BP 123/70
--- NOTE | 2018-05-09 08:05 | NUR ---
START OF SHIFT NOTE Received report from night nurse, patient admitted for opioid, Benzo withdrawal, and continues with Phenobarbital and Subutex taper tolerating well. Per endorsement patient did not receive any PRN, Last CIWA -10, COWS-11, slept for 7 hours. Received patient asleep responsive to verbal and tactile stimuli. Breathing normal no SOB noted. Skin intact warm and dry to touch. All safety measures in place. Will cont to monitor.
[2018-05-09] MEDS: GABAPENTIN 300 MG CAPSULE PO SCH ×3 (08:23→21:16)
[2018-05-09] MEDS ORDERED: PHENOBARBITAL 60 MG TABLET PO SCH (09:00)
[2018-05-09] MEDS ORDERED: BUPRENORPHINE HCL 2 MG TAB.SUBL SL SCH (09:00)
[2018-05-09 12:00] VITALS: BP 122/61
[2018-05-09] MEDS ORDERED: CLON0.1T14 PO (14:41)
[2018-05-09] MEDS ORDERED: GABA-534 PO ×2 (14:41)
[2018-05-09] MEDS ORDERED: IBUP-1955 PO (14:41)
[2018-05-09] MEDS ORDERED: DIPH50CA37 PO (14:41)
[2018-05-09] MEDS ORDERED: METH-406 PO (14:41)
[2018-05-09] MEDS ORDERED: DICY20TA28 PO (14:41)
[2018-05-09 17:00] VITALS: BP 126/63
--- NOTE | 2018-05-09 19:05 | NUR ---
END OF SHIFT NOTE Gave report to night nurse, 22 year old male patient on a 5 day Phenobarbital and Subutex taper and is tolerating well. Pt remains A/O x4. No acute distress noted throughout shift. No PRN medications needed. Patient attended groups activities. Patient set for discharge in AM. Most recent CIWA is 7 and COWS 7@ 1600. All needs are attended. Pt endorsed to night nurse in stable condition. Pt is stable at this time, night nurse will continue to monitor.
--- NOTE | 2018-05-09 19:30 | NUR ---
START OF SHIFT Pt is a 22 y/o male admitted on 05/04/18 for benzo, opiate and meth withdrawal. Pt finished a 5 day Phenobarbital and 5 day Subutex taper and is scheduled to be d/c tomorrow. Last COWS 7 and CIWA 7 and no PRNs administered during day shift. Upon assessment pt presents with anxiety, chills, cold sweats, restlessness, difficulty falling and staying asleep, unkempt room, and flat affect. Medications due. Safety measures in place. Call light within reach. Will continue to monitor.
[2018-05-09 20:00] VITALS: BP 132/64
[2018-05-09] MEDS: diphenhydrAMINE 50 MG CAPSULE PO PRN (21:16)
--- NOTE | 2018-05-09 21:27 | NUR ---
PRN BENADRYL AND CLONIDINE ADMINISTRATION Pt requests Benadryl for sleep aid. Pt presents with anxiety, chills, and cold sweats. BP 132/64 and HR 83. Safety measures in place. Call light within reach. Will continue to monitor.
--- NOTE | 2018-05-09 22:27 | NUR ---
PRN BENADRYL AND CLONIDINE REASSESSMENT Pt laying in bed with eyes closed, medications noted effective. Safety measures in place. Call light within reach. Will continue to monitor.
--- NOTE | 2018-05-10 | NUR ---
CIWA DEFERRED AND VITALS REFUSED Pt laying in bed with eyes closed, CIWA deferred, to be assessed when pt is awake per orders. Vitals refused. Respirations even and unlabored. Safety measures in place. Call light within reach. Will continue to monitor. Addendum: 05/10/18 at 0515 by CHRIS LUNA RN COWS ALSO DEFERRED
--- NOTE | 2018-05-10 04:00 | NUR ---
COWS/CIWA DEFERRED AND VITALS REFUSED Pt laying in bed with eyes closed, COWS/CIWA deferred, to be assessed when pt is awake per orders. Vitals refused. Respirations even and unlabored. Safety measures in place. Call light within reach. Will continue to monitor.
--- NOTE | 2018-05-10 07:02 | NUR ---
END OF SHIFT Pt is a 22 y/o male admitted on 05/04/18 for benzo, opiate and meth withdrawal. Pt finished a 5 day Phenobarbital and 5 day Subutex taper and is scheduled to be d/c today. Pt presented with anxiety, chills, cold sweats, restlessness, difficulty falling and staying asleep, unkempt room, and flat affect. Scheduled medications and PRN Benadryl and Clonidine administered, effective in S/S of withdrawal as verbalized by pt. Last COWS 7 and CIWA 9. Pt slept 9 hours. Intake 1210 ml, void x 3, stool x 1. Safety measures in place. Call light within reach. Pts needs have been met. Endorsed to day shift nurse.
--- NOTE | 2018-05-10 07:30 | NUR ---
Start of Shift Cleaner Touch Up Worker received report on 22 year old male admitted to [facility] on 05/04/18 for medical management of Benzodiazepine, Suboxone and Methamphetamine withdrawals. Pt endorses NKA, full code and regular diet. PMH of Hepatitis C and a history of withdrawal related seizures. PPH of anxiety and depression. Pt currently on a Phenobarbital and Subutex taper, tolerating well with last COWS 7 and CIWA 9, per NOC report. Pt administered Benadryl(insomnia) and Clonidine(chills and sweats)on NOC, per report. Cleaner Touch Up Worker encounters pt in pts room, resting with eyes closed and even and unlabored respirations at 14. Bed in low position with wheels locked and side rails up x2. Will continue to monitor, support and encourage according to plan of care.
[2018-05-10 08:23] VITALS: BP 105/58
[2018-05-10] MEDS: GABAPENTIN 300 MG CAPSULE PO SCH (08:33)
--- NOTE | 2018-05-10 09:30 | NUR ---
Discharge Pt educated on discharge process, diagnosis, lab results, medications and importance of continued sobriety and follow-up. Pt educated on medication name, route, timing and indication. Provided with discharge medication prescriptions. Pt provided with copies of all educational material. Pt's personal belongings returned and signed for. No home medications to return. Pt denies any further comments, questions or concerns. Pt discharged per ambulation and escorted to waiting private car for transportation a [facility]ber [facility] facility. Pt is calm, cooperative and pleasant. Flat affect with an anxious mood. Pt is anxious about leaving detox and transitioning. Pt with linear thought process and clear speech. Pt denies SI/HI or A/VH. Pt stable for discharge
== END 2018-05-10 09:30 | disposition home or self-care (01) | DRG 772 ==
LOC: SRC 00:13
PROVIDERS: ADMIT Internal Medicine; ATTEND Internal Medicine
PROC: HZ2ZZZZ Detoxification Services for Substance Abuse Treatment (ICD-10-PCS; principal; 2018-05-04)
PROC: HZ31ZZZ Individual Counseling for Substance Abuse Treatment, Behavioral (ICD-10-PCS; 2018-05-06)
DX: F13.232 Sedative, hypnotic or anxiolytic dependence with withdrawal with perceptual disturbance (principal); D69.6 Thrombocytopenia, unspecified; B19.20 Unspecified viral hepatitis C without hepatic coma; F41.9 Anxiety disorder, unspecified; F17.210 Nicotine dependence, cigarettes, uncomplicated; Z59.0 Homelessness; Z59.1 Inadequate housing; F32.9 Major depressive disorder, single episode, unspecified; D72.819 Decreased white blood cell count, unspecified; F15.10 Other stimulant abuse, uncomplicated
CPT/HCPCS: 36415; 80307; 80324; 80345; 80346; 80349; 80361; 83690; 83735; 84443; 85025; 86580; 86592; 86705; 86803; 87340; 87806; G0480; J8499; Q0163